=== PATIENT | female | born 2000 | race African-American/Black ===

== ENCOUNTER 2023-01-05 16:47 | Emergency (ER) | payer BC, SELFPAY ==
--- NOTE | ~2023-01-05 | CT_ITS ---
EXAMINATION: CT brain wo con INDICATION: Syncope, closed head injury COMPARISON: None TECHNIQUE: Standard unenhanced head CT. The dose-length product (DLP) was 605.33 mGy-cm. The mA was a djusted according to patient size. Iterative reconstruction technique was employed. FINDINGS: There is no intracranial hemorrhage, acute infarction, or abnormal mass lesion. The ventric les are normal. There is no abnormal mass effect or midline shift. The cortes-white matter differentiat ion is normal. The basal cisterns are patent. The orbits are normal. The paranasal sinuses, mastoids and calvarium are normal. IMPRESSION: 1. No acute intracranial abnormality. Reviewed, dictated and finalized at location F.
[2023-01-05 16:55] VITALS: BP 113/70; PULSE 83; RESP 16; TEMP 36.4; O2SAT 100
--- NOTE | 2023-01-05 16:56 | ECG_ITS ---
Measurements Intervals Bunch Rate: 63 P: -2 GA: 153 QRS: 49 QRSD: 86 T: 9 QT: 377 QTc: 389 Interpretive Statements SINUS RHYTHM WITHIN NORMAL LIMITS NO PREVIOUS ECG AVAILABLE FOR COMPARISON Electronically Signed On 01-06-2023 12:35:53 CDT by Ish Goldman M.D.
[2023-01-05 17:18] LABS: Basophils Percent Auto 0.4 % (0.2-1.2); Eosinophils Absolute Auto 0.2 K/mm3 (0-0.3); Eosinophils Percent Auto 3.5 % (0-4.4); Hematocrit 38.6 % (37.0-47.0); Hemoglobin 12.8 g/dL (12.0-15.0); Immature Granulocyte Absolute 0.01 K/mm3 (0.00-0.031); Immature Granulocyte Percent A 0.1 % (0-0.5); Lymphocytes Absolute Auto 2.37 K/mm3 (0.9-3.2); Lymphocytes Percent Auto 34.9 % (18.3-44.2); Mean Corpuscular HGB Conc 33.2 g/dl (32-36); Mean Corpuscular Hemoglobin 29.6 pg (26-34); Mean Corpuscular Volume 89.4 fl (80-100); Mean Platelet Volume 10.5 fl (7.4-10.4); Monocytes Absolute Auto 0.4 K/mm3 (0.1-0.6); Neutrophils Absolute Auto 3.7 K/mm3 (1.3-6.7); Neutrophils Percent Auto 55.1 % (45.5-73.1); Platelet Count Result 286 k/mm3 (150-375); Red Blood Count 4.32 M/mm3 (4.2-5.4); Red Cell Distribution Width 14.4 % (11.5-14.5); White Blood Count 6.8 K/mm3 (4.5-10.0)
[2023-01-05 17:27] LABS: Alanine Aminotransferase 16 U/L (6-35); Albumin Level 4.7 g/dL (3.5-5.1); Alkaline Phosphatase 40 U/L (38-126); Anion Gap 6 mmol/L (8-16); Aspartate Amino Transferase 24 U/L (14-36); Bilirubin,Total 0.8 mg/dL (0.2-1.3); Blood Urea Nitrogen 15 mg/dL (7-17); Calcium 9.4 mg/dL (8.4-10.2); Carbon Dioxide 26 mmol/L (22-30); Chloride 106 mmol/L (98-107); Estimated CRCL calculation 114 ml/min; Estimated Glomerular Filt Rate > 60; Glucose 103 mg/dL (65-110); Sodium 138 mmol/L (137-145)
[2023-01-05 17:37] VITALS: PULSE 66
--- NOTE | 2023-01-05 17:37 | ED.SYNCOPE ---
HPI - Syncope General Chief Complaint: Syncope Stated Complaint: syncope Time Seen by Provider: 01/05/23 17:35 Source: patient Mode of arrival: ambulatory Limitations: no limitations History of Present Illness HPI narrative: Patient is 22 years old -[place] female was a standing about 2 minutes then felt lightheadedness and fell and hit the head on the bed frame. Loss of consciousness for about 30 seconds. Was coherent after then, no tongue biting, no urinary incontinence. History of intermittent headache for years, migraine headache, used to take medicine under the tongue to improve the headache. Patient reported having headache before the lightheadedness, was diffuse, currently on the right side of the head. She denies any fever, chills, nausea, vomiting, chest pain, shortness of breath. Patient is telling me that she smokes marijuana daily, drink alcohol weekly, and vapes. Patient also telling me that she had similar symptoms when she was 12 years old got lightheadedness and blacked out. Currently patient does not take any medicine at home. Related Data Allergies Allergy/AdvReac Type Severity Reaction Status Date / Time No Known Allergies Allergy Verified 01/05/23 17:38 Review of Systems Review of Systems: All systems reviewed & are unremarkable except as noted in HPI and below Exam Narrative: General appearance: Well-developed, well-nourished Skin: Normal color Head: Normocephalic, nontraumatic Eyes: Clear conjunctiva ENT: Oropharynx normal, ears normal, nose normal Neck: Supple, nontender Chest and respiratory: Airway patent, no respiratory distress, no accessory muscle use Heart: Regular rate/rhythm Abdomen: Soft, nontender, no organomegaly, quiet bowel sounds Vascular: Normal peripheral pulses, normal capillary refill. Musculoskeletal: Normal range of motion, nontender back Neurologic: Alert and oriented ?3, LAB COURIER is normal as tested, no gross motor deficit Course Reevaluation(s) Reevaluation #1: Patient feeling much better after having Toradol 30 mg IV. The pt was discharged to home.the pt,s condition upon discharge was fair,education was provided to the pt in reference to the final impression,discharge study results,treatment,prognosis and need for follow up . Date: 01/05/23 Time: 18:50 Vital Signs Vital signs: Vital Signs Temperature 36.4 C 01/05/23 16:55 Pulse Rate 83 01/05/23 16:55 Respiratory Rate 16 01/05/23 16:55 Blood Pressure 113/70 01/05/23 16:55 Pulse Oximetry 100 01/05/23 16:55 Oxygen Delivery Room Air 01/05/23 16:55 Temperature 36.4 C 01/05/23 16:55 Pulse Rate 87 01/05/23 18:07 Respiratory Rate 16 01/05/23 16:55 Blood Pressure 108/78 01/05/23 18:07 Pulse Oximetry 100 01/05/23 16:55 Oxygen Delivery Room Air 01/05/23 16:55 MDM - Syncope MDM Narrative Medical decision making narrative: Patient presents with headedness, headache and syncope. Had history of headache/migraine headache used to take medicine for it under the tongue, does not remember the name. Today was standing for about 2 minutes, got lightheadedness and hit her head on the bed frame, possible loss of consciousness for 30 seconds, currently her main complaint is right-sided headache, Physical examination was unremarkable, differential diagnosis include dehydration, vasovagal, migraine headache related symptoms, drug abuse. 70 Work-up today showed normal CBC, normal chemistry, positive for marijuana in the urine, normal CT scan of the head. Patient is not orthostatic. Patient received 30 mg of Toradol IV prior to discharge with significant improvement. Patient to follow-up with Dr. Kan mac
[2023-01-05 18:03] VITALS: BP 108/70; PULSE 54
[2023-01-05 18:04] VITALS: BP 110/80; PULSE 60
[2023-01-05 18:07] VITALS: BP 108/78; PULSE 87
[2023-01-05 18:11] LABS: Pregnancy On Board Control Positive; Urine Pregnancy Test Negative
[2023-01-05 18:22] LABS: Amphetamine Screen Urine Negative (Negative); Barbiturate Screen Urine Negative (Negative); Benzodiazepines Screen Urine Negative (Negative); Cannabinoid Screen Urine Positive (Negative); Cocaine Screen Urine Negative (Negative); Methadone Screen Urine Negative (Negative); Opiate Screen Urine Negative (Negative); Phencyclidine Screen Urine Negative (Negative)
[2023-01-05] MEDS: KETOROLAC 30 MG/ML VIAL (*BKC) IV PUSH (18:50)
[2023-01-05 19:11] VITALS: BP 115/70; PULSE 71; RESP 16; O2SAT 98
== END 2023-01-05 19:19 | disposition home or self-care (01) ==
PROVIDERS: Preventive Medicine Aerospace Medicine; Emergency Provider Emergency Medicine; PCP Family Medicine
DX: R42 Dizziness and giddiness (principal); R55 Syncope and collapse; F12.10 Cannabis abuse, uncomplicated
CPT/HCPCS: 36415; 70450; 80053; 80307; 81025; 85025; 93005; 96374; 99284; J1885